=== PATIENT | male | born 2000 | race Caucasian/White ===

== ENCOUNTER 2020-06-23 03:15 | Emergency (ER) | payer OTHER, MEDICAID, SELFPAY ==
[2019-08-30 17:25] VITALS: BMI 31.8
[2020-06-23 03:16] VITALS: BP 152/85; PULSE 88; RESP 16; TEMP 37.1; O2SAT 96; BMI 29.1
--- NOTE | 2020-06-23 03:24 | ED.DCSUM_ITS ---
History of Present Illness Chief Complaint: Lower Extremity Injury Informant: Patient Narrative: Stated he was walking to his break and felt some pain in the right inferior aspect of the right knee patient stated this happened at work. [place] [employer] when he was walking. He stated last week he had a similar event in his right knee. Is unsure what happened. No previous injury. Took some ibuprofen. Worsened by movement. Relieved with rest. Current severity is mild. No blunt injury. Past Medical History - Allergies and Home Meds Allergies/Adverse Reactions: Allergies cat dander Allergy (Verified 06/23/20 03:20) Unknown acetaminophen [From Vicodin] Adverse Reaction (Verified 06/23/20 03:20) Other hydrocodone bitartrate [From Vicodin] Adverse Reaction (Verified 06/23/20 03:20) Other Primary Care Physician: Alex Wasserman MD [Primary Care Provider] - Prior records reviewed: Yes Past Medical History: None Surgical History: no surgical history Lives: With Family Smoking Status: Never smoker Alcohol: None Drugs: None Review of Systems General: Denies: Chills, Fever, Sweats Eyes: Denies: Visual changes - bilaterally, Diplopia ENT: Denies: Rhinorrhea, Sore throat Cardiovascular: Denies: Chest pain, Palpitations Respiratory: Denies: Dyspnea, Cough, Dyspnea on exertion Gastrointestinal: Denies: Abdominal pain, Nausea, Vomiting, Diarrhea, Melena, Hematochezia Genitourinary: Denies: Dysuria, Hematuria, Frequency Musculoskeletal: Reports: Extremity Pain. Denies: Back pain Skin: Denies: Rash, Wounds Neurological: Denies: Headache, Weakness, Numbness Physical Exam Vital Signs/Narrative: Vital Signs Temp Pulse Resp BP Pulse Ox 06/23/20 03:16 98.7 F 88 16 152/85 H 96 General: Well nourished, Well developed, No Acute Distress Head: Normocephalic, Atraumatic Eyes: Perrl, EOMI ENT: Moist mucous membranes, No rhinorrhea Neck: Supple, Nontender Cardiovascular: Regular rate, Regular rhythm, No murmurs Respiratory: No distress, CTA bilaterally, Chest nontender Abdomen: Soft, Nontender, Nondistended, Normal bowel sounds Back: Nontender, Normal Inspection Extremities: No edema, Tenderness - Tenderness in the right inferolateral patellar region. Mild decreased range of motion secondary to pain in this area. No fibular head tenderness. Extensor mechanism intact. No tenderness along the joint line. Ligaments taught Skin: Normal color, No rash Neurological: Alert, Oriented x3, Cranial nerves II-XII grossly intact, Normal Strength, Normal Sensation Psychological: Normal affect, Normal Mood Diagnostic/Tx/Re-eval - Medical Decision Making Given ice pack. Already took ibuprofen. X-ray of the right knee obtained. X- ray negative. Patient given Erlin wrap. We will follow-up with [facility]. At this time he may have a knee sprain versus ligamentous injury ED Disposition - Plan for ED Patient: Disposition: Home or Assisted Living Diagnosis: Right knee sprain Instructions: ED Sprain Knee [facility]: [facility] [GROUP OF PHYSICIANS] -
--- NOTE | 2020-06-23 03:45 | RAD_ITS ---
STUDY: X-RAY - RIGHT KNEE REASON FOR EXAM: Male, 19 years old. RIGHT KNEE PAIN, PT STATES KNEE GAVE OUT AND and quot;POPPED and quot; WHILE WALKING TODAY. TECHNIQUE: 4 view(s) of the knee. COMPARISON: None. FINDINGS: Normal visualized distal femur. Normal visualized proximal tibia and fibula. Normal proximal tibiofibular articulation. Normal medial femorotibial compartment. Normal lateral femorotibial compartment. Normal patellofemoral articulation. The soft tissue structures are unremarkable. RAD/Knee 4 or More Views IMPRESSION: Normal x-ray examination of the knee. Electronically Signed: Nikki Rodriguez, at 4:13 EDT Tel , Service support ,
[2020-06-23 04:30] VITALS: BP 150/83; PULSE 80; RESP 15; O2SAT 98
== END 2020-06-23 04:31 | disposition home or self-care (01) ==
PROVIDERS: Emergency Provider Emergency Medicine; PCP Family Medicine
DX: S83.91XA Sprain of unspecified site of right knee, initial encounter (principal); X58.XXXA Exposure to other specified factors, initial encounter
CPT/HCPCS: 73564; 99282

== ENCOUNTER → 2020-10-20 16:20 | Outpatient (CLI) | payer MEDICAID, SELFPAY ==
[2020-06-27 09:10] VITALS: BMI 33.0
--- NOTE | 2020-10-20 16:21 | RAD_ITS ---
STUDY: X-RAY - RIGHT ANKLE REASON FOR EXAM: Male, 20 years old. rolled ankle while playing basketball about an hour ago TECHNIQUE: 3 view(s) of the ankle. COMPARISON: None. FINDINGS: Normal visualized distal tibia and fibula. Normal medial and lateral malleoli. Normal tibiotalar articulation and ankle mortise. Normal visualized talus and calcaneus. The visualized subtalar, talonavicular, calcaneocuboid and tarsal articulations are normal. There is no demonstrated fracture. Mild to moderate soft tissue swelling is present over the lateral aspect of the ankle. RAD/Ankle min 3 Views IMPRESSION: Mild to moderate soft tissue swelling of the lateral aspect of the ankle Electronically Signed: Trenton Lundberg MD at 17:25 EST , Service support ,
== END ==
PROVIDERS: PCP Family Medicine; Referring Provider Physician Assistant Surgical; Visit Provider Physician Assistant Surgical
DX: S93.409A Sprain of unspecified ligament of unspecified ankle, initial encounter (principal)
CPT/HCPCS: 73610

== ENCOUNTER 2022-02-28 23:30 | Emergency (ER) | payer MEDICAID, SELFPAY ==
[2022-02-28 23:31] VITALS: BP 158/83; PULSE 110; RESP 18; TEMP 35.9; O2SAT 94; BMI 35.9
[2022-03-01 00:05] LABS: Absolute Lymphocyte Count 1.41 X10^3/uL (0.83-4.51); Absolute Neutrophil Count 13.9 X10^3/uL (2.0-7.7); Basophil# 0.06 X10^3/uL; Basophil% 0.4 % (0-1); Eosinophil# 0.14 X10^3/uL; Eosinophils% 0.8 % (0-5); Hematocrit 47.4 % (40-54); Hemoglobin 15.7 g/dL (13.0-16.5); Lymphocyte # 1.41 X10^3/ul (0.83-4.51); Lymphocyte % 8.3 % (19-41); Mean Corp Hgb Conc 33.1 g/dL (32-36); Mean Corpuscular Hgb 28.1 pg (27.0-32.0); Mean Corpuscular Volume 84.8 fL (80-94); Mean Platelet Vol. 11.3 fl (6.2-12.0); Monocyte# 1.37 X10^3/uL; Monocyte% 8.1 % (0-10); NRBC Flagged by Analyzer 0 % (0-5); Neutrophil # 13.91 X10^3/uL (2.7-7.7); Neutrophil % 81.9 % (47-70); Platelet Count 218 K/mm3 (150-450); RBC Distribution Width CV 13.2 % (11.6-14.6); RBC Distribution Width SD 41.1 fl (35.1-43.9); Red Blood Count 5.59 M/mm3 (4.6-6.2)
[2022-03-01] MEDS: Ondansetron 4 MG/2 ML Vial IV (00:07)
[2022-03-01] MEDS: Ketorolac 30 MG/ML Syringe IV (00:08)
[2022-03-01] MEDS: Dicyclomine 20 MG/2 ML Vial IM (00:10)
[2022-03-01] MEDS: 0.9% Normal Saline 1,000 ML 1000 ML IV (00:11)
[2022-03-01 00:18] LABS: Anion Gap 8 (5-15); BUN 19 mg/dL (7-18); BUN/Creat Ratio 20.9 RATIO (10-20); Calcium,Total 8.9 mg/dL (8.5-10.1); Chloride 108 mmol/L (98-107); Creatinine, Serum 0.91 mg/dL (0.70-1.30); EST Glomerular Filtration Rate 111 mL/min (>60); Est Glom Filt Rate - Afr Amer 134 mL/min (>60); Estimated Creatinine Clearance 140.94 ml/min; Glucose 117 mg/dL (74-106); Potassium 3.9 mmol/L (3.5-5.1); Sodium Level 140 mmol/L (136-145)
--- NOTE | 2022-03-01 00:33 | EDS_ITS ---
HPI History of Present Illness Chief Complaint: Nausea/Vomiting Informant: patient Onset/Context/Timing Onset: Today Current Severity: Moderate Maximum Severity: Moderate Narrative Narrative: Patient presents admitted nausea, vomiting, and diarrhea after eating a [employer] today. He states he felt fine prior to eating out. He has had abdominal cramping with vomiting and diarrhea since. No fever. PFSH PFSH Medical History no medical history no medical history Home Medications dicyclomine 20 mg tablet 20 mg PO TID PRN abdominal cramping #10 tabs 03/01/22 [Rx Last Taken Unknown] ondansetron 4 mg disintegrating tablet 4 mg PO Q8H PRN nausea and vomiting #10 tabs 03/01/22 [Rx Last Taken Unknown] Allergy/AdvReac Type Severity Reaction Status Date / Time cat dander Allergy Unknown Verified 02/28/22 23:33 acetaminophen [From Vicodin] AdvReac Other Verified 02/28/22 23:33 hydrocodone bitartrate AdvReac Other Verified 02/28/22 23:33 [From Vicodin] Family History Father Hypertension Other Heart disease Social History Smoking Status: Never smoker alcohol intake: never ROS ROS ED Constitutional Constitutional ED: Denies chills or fever(s) Eyes Eyes: Denies change in vision or discharge from eye(s) ENT ENT ED: Denies discharge from eye(s), rhinorrhea or sore throat Cardiovascular Cardiovascular: Denies chest pain or palpitations Respiratory/Chest Respiratory/Chest: Denies cough or dyspnea Gastrointestinal Gastrointestinal: Reports abdominal pain, diarrhea, nausea and vomiting Genitourinary Genitourinary ED: Denies difficulty urinating or dysuria Musculoskeletal Musculoskeletal: Denies back pain or extremity pain Integumentary Denies Abrasions or rash Neurologic Neurologic: Denies headache(s) or weakness Allergic/Immunologic Allergic/Immunologic ED: Denies lip swelling or urticaria EXAM Physical Exam Const Vital Signs: 02/28/22 23:31 Temperature 96.7 F L Temperature Source Temporal Pulse Rate 110 H Respiratory Rate 18 Blood Pressure 158/83 H Blood Pressure Mean 108 Pulse Ox 94 Oxygen Delivery Method Room Air Positive well nourished and well developed General Appearance ED: well developed HEENT Reports moist mucous membranes Eyes PERRL and EOMs intact bilaterally Chest Wall inspection of chest normal and palpation of chest normal Resp normal respiratory effort and clear to auscultation bilaterally Cardio regular rate and regular rhythm GI non-tender Auscultation: hypoactive bowel sounds Extremity normal to inspection Neuro oriented x3, CN's II-XII intact bilaterally and no sensory deficits noted Motor Exam: strength 5/5 throughout Psych mental status grossly normal Skin no rashes or lesions noted MDM MDM MDM Narrative Medical decision making narrative: Patient is given IV fluids, Toradol, Zofran, Bentyl. Lab work obtained. Lab Data Attestation: I reviewed the patient's lab results. Labs: Laboratory Results - last 24 hr 02/28/22 02/28/22 23:52 23:52 WBC 17.0 H RBC 5.59 Hgb 15.7 Hct 47.4 MCV 84.8 MCH 28.1 MCHC 33.1 RDW Std Deviation 41.1 RDW Coeff of Dia 13.2 Plt Count 218 MPV 11.3 Immature Gran % (Auto) 0.500 Neut % (Auto) 81.9 H Lymph % (Auto) 8.3 L Archuleta % (Auto) 8.1 Eos % (Auto) 0.8 Baso % (Auto) 0.4 Absolute Neuts (auto) 13.9 H Absolute Lymphs (auto) 1.41 Nucleated RBC % 0 Sodium 140 Potassium 3.9 Chloride 108 H Carbon Dioxide 24.0 Anion Gap 8 BUN 19 H Creatinine 0.91 Estim Creat Clear Calc 140.94 Est GFR (MDRD) Af Amer 134 Est GFR (MDRD) Non-Af 111 BUN/Creatinine Ratio 20.9 H Glucose 117 H Calcium 8.9 Treatment and Re-Evaluation Narrative: White count elevated at 17.0 with left shift. I believe this is likely demargination from vomiting. Chemistry studies remarkable only for slight bump in BUN. On repeat evaluation patient reports significant improvement in his symptoms. He is tolerating p.o. fluids. Abdominal examination remains benign. Patient will be given prescription for Zofran and Bentyl. He will be given a work note for tomorrow if not improved in the morning. Discharge Plan Triage Chief Complaint: Nausea/Vomiting ED Provider: Gaye Peña Dx/Rx/DC Orders Clinical Impression: Gastroenteritis Instructions: ED Food Poison Or Gastroenteritis Prescriptions: New ondansetron 4 mg tablet,disintegrating 4 mg PO Q8H PRN (Reason: nausea and vomiting) Qty: 10 0RF dicyclomine 20 mg tablet 20 mg PO TID PRN (Reason: abdominal cramping) Qty: 10 0RF Stand Alone Forms: ED Work / School Excuse Primary Care Provider: Alex Wasserman Referrals: Alex Wasserman MD [Primary Care Provider] - 3-5 Days if not improving Disposition Disposition: Home, Self Care
[2022-03-01 00:55] VITALS: BP 158/81; PULSE 87; RESP 15; O2SAT 98
== END 2022-03-01 01:00 | disposition home or self-care (01) ==
PROVIDERS: Emergency Provider Emergency Medicine; PCP Family Medicine; Visit Provider Emergency Medicine
DX: K52.9 Noninfective gastroenteritis and colitis, unspecified (principal)
CPT/HCPCS: 80048; 85025; 96372; 96374; 96375; 99283; J7030; A4216; J2405

== ENCOUNTER 2022-09-12 22:36 | Emergency (ER) | payer MEDICAID, SELFPAY ==
[2022-09-12 22:37] VITALS: BP 146/94; PULSE 80; RESP 15; TEMP 36.2; O2SAT 100; BMI 35.9
--- NOTE | 2022-09-12 23:20 | RAD_ITS ---
EXAM: XR CHEST, 2 VIEWS CLINICAL INDICATION: chest pain left TECHNIQUE: Frontal and lateral views of the chest. This report was created using [employer] report generation technology. COMPARISON: None. FINDINGS: LUNGS AND PLEURAL SPACES: Unremarkable. No consolidation or edema. No pneumothorax. No effusion. HEART: Unremarkable. Cardiac silhouette not enlarged. MEDIASTINUM: Central airways and mediastinal contour are unremarkable. BONES/JOINTS: Unremarkable. SOFT TISSUES: Unremarkable. RAD/Chest PA and Lateral IMPRESSION: No radiographic evidence of acute cardiopulmonary disease. Electronically Signed: Dimitri Lau MD at 23:58 EST ,
--- NOTE | 2022-09-13 | EDS_ITS ---
HPI History of Present Illness Chief Complaint: Chest Pain Informant: patient Onset/Context/Timing Onset: Days (3-4) Activity at onset: sudden and onset Timing: Intermittent and Lasts (few seconds) Quality: Positive for Sharp Location: Left Chest Current Severity: Gone Maximum Severity: Moderate Worsened By: Nothing; Not Worsened By Exertion, Movement of Arm, Movement of Torso, Breathing or Coughing Relieved By: Nothing Associated Symptoms: Negative for Nausea, Vomiting, Diaphoresis, Dyspnea, Cough, Fever, Lightheadedness or Palpitations Narrative Narrative: Patient presents for evaluation of intermittent sharp brief chest discomfort episodes that have been going on for the last 3 or 4 days. 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 He states the pain feels sort of like muscle pain that he has had in the past but denies an obvious reason to have it right now. He does not have any obvious triggers for the pain such as lying down, moving his arm or his torso, exertion, breathing, coughing. No leg pain or swelling or injury or recent illness. No recent travel out of the area, immobilization, hospitalization, or surgery. No cough or hemoptysis. PFSH PFSH Medical History no medical history no medical history Home Medications melatonin 10 mg tablet 10 mg PO 09/12/22 [History Last Taken Unknown] Allergy/AdvReac Type Severity Reaction Status Date / Time cat dander Allergy Unknown Verified 02/28/22 23:33 acetaminophen [From Vicodin] AdvReac Other Verified 02/28/22 23:33 hydrocodone bitartrate AdvReac Other Verified 02/28/22 23:33 [From Vicodin] Family History Father Hypertension Other Heart disease Social History (Updated 09/13/22 @ 00:[address] Maximino Almaraz MD) Smoking Status: Never smoker alcohol intake: never substance use type: does not use ROS ROS ED Constitutional Constitutional ED: Denies chills or fever(s) Eyes Eyes: Denies change in vision or diplopia ENT ENT ED: Denies rhinorrhea or sore throat Cardiovascular Cardiovascular: Reports as per HPI and chest pain; Denies palpitations Respiratory/Chest Respiratory/Chest: Denies cough or dyspnea Gastrointestinal Gastrointestinal: Denies abdominal pain, diarrhea, nausea or vomiting Genitourinary Genitourinary ED: Denies dysuria or hematuria Musculoskeletal Musculoskeletal: Denies back pain or neck pain Integumentary Denies abscess or rash Neurologic Neurologic: Denies headache(s), paresthesias or weakness Psychiatric Psychiatric: Denies anxiety or suicidal thoughts EXAM Physical Exam Const Vital Signs: 09/12/22 22:37 09/12/22 22:47 Temperature 97.1 F L Temperature Source Temporal Pulse Rate 80 Respiratory Rate 15 Respiratory Effort Normal Blood Pressure 146/94 H Blood Pressure Mean 111 Pulse Ox 100 Oxygen Delivery Method Room Air Positive well nourished and well developed General Appearance ED: well developed and NAD HEENT Reports moist mucous membranes normocephalic and atraumatic Eyes PERRL and EOMs intact bilaterally Neck full ROM and supple Chest Wall inspection of chest normal and palpation of chest normal Resp normal respiratory effort and clear to auscultation bilaterally Cardio regular rate, regular rhythm and no murmurs Rate: Negative for tachycardic GI non-tender and non-distended Auscultation: normoactive bowel sounds Palpation: soft Back/Spine no CVA tenderness General Back: other FROM Extremity normal to inspection General Extremety ED: Negative for edema, pulses abnormal or tenderness General Extremity: Negative for edema or pulses abnormal Neuro oriented x3, CN's II-XII intact bilaterally and no sensory deficits noted Sensorium / Orientation: awake and alert Motor Exam: strength 5/5 throughout Skin no rashes or lesions noted and no wounds Heart Score History: Slightly/Non-Suspicious ECG: Normal Age: </= 45 years Risk Factors: No Risk Factors Troponin: </= Normal Limit Score: 0 MDM MDM MDM Narrative Medical decision making narrative: This discomfort sounds noncardiac. Differential reasonably includes musculoskeletal etiologies, esophageal spasm versus acid related etiologies, less likely pneumothorax. 2 view chest x-ray I interpreted, it is unremarkable, there is a narrow mediastinum and no sign of pneumothorax or focal consolidation. Radiology in agreement. I did a troponin as well, just to rule out other unusual etiologies such as myocarditis, less likely to be ischemic heart discomfort. This was normal as well. Patient is reassured, supportive care advised outpatient follow-up if his pain persist. Lab Data Labs: Laboratory Results - last 24 hr 09/12/22 22:49 Troponin I High Sens 6 Radiography Diagnostic Testing: Clinical Impression(s) from Imaging Studies Chest X-Ray 09/12/22 23:20 IMPRESSION: No radiographic evidence of acute cardiopulmonary disease. Electronically Signed: Dimitri Lau MD at 23:58 EST Reading Location ID and State: [address] [place] [address] Tel , Service support , Rhythm Strip Rhythm Strip: Sinus Rhythm Rate: 80 Ectopy: None EKG Initial EKG: Attestation: I personally reviewed and interpreted this EKG as follows: Interpretation: Sinus Rhythm and No Acute Injury Pattern Comments: Normal EKG Discharge Plan Triage Chief Complaint: Chest Pain ED Provider: Maximino Almaraz Dx/Rx/DC Orders Clinical Impression: Intermittent left-sided chest pain Instructions: ED Chest Pain, Noncardiac Prescriptions: No Action melatonin 10 mg Tablet 10 mg PO Primary Care Provider: Alex Wasserman Referrals: Alex Wasserman MD [Primary Care Provider] - 1 Week if not improving Activity Restrictions/Additional Instructions: May try Mylanta or Maalox for the discomfort, if that does not help temporarily then may try anti-inflammatories like ibuprofen. Disposition Disposition: Home, Self Care
--- NOTE | 2022-09-13 00:06 | EKG12_ITS ---
Test Reason : CP Blood Pressure : / mmHG Vent. Rate : 079 BPM Atrial Rate : 079 BPM P-R Int : 166 ms QRS Dur : 086 ms QT Int : 348 ms P-R-T Axes : 031 050 000 degrees QTc Int : 399 ms Normal sinus rhythm Normal ECG Confirmed by DEMETRIO QUEZADA, ENRICO ([id number]), offline editor SHU MCCABE ([id number]) on 09/13/2022 2:01:03 PM Referred By: BB Confirmed By:ENRICO ATKINSON MD
[2022-09-13 00:10] LABS: Troponin-I HS 6 pg/mL (3.0-78.0)
[2022-09-13 00:32] VITALS: BP 144/75; PULSE 87; RESP 15; O2SAT 97
== END 2022-09-13 00:32 | disposition home or self-care (01) ==
PROVIDERS: Emergency Provider Emergency Medicine; PCP Family Medicine; Visit Provider Emergency Medicine
DX: R07.9 Chest pain, unspecified (principal); Z82.49 Family history of ischemic heart disease and other diseases of the circulatory system
CPT/HCPCS: 71046; 84484; 93005; 99282; A4216

== ENCOUNTER 2023-09-15 18:43 | Emergency (ER) | payer SELFPAY ==
[2023-09-15 18:44] VITALS: BP 179/94; PULSE 98; RESP 16; TEMP 36; O2SAT 99; BMI 36.2
--- NOTE | 2023-09-15 18:47 | RAD_ITS ---
STUDY: X-RAY - LEFT KNEE REASON FOR EXAM: Male, 23 years old. INJURY TECHNIQUE: 5 view(s) of the knee. COMPARISON: None. FINDINGS: Normal visualized distal femur. Normal visualized proximal tibia and fibula. Normal proximal tibiofibular articulation. There is no demonstrated fracture. Normal medial femorotibial compartment. Normal lateral femorotibial compartment. Normal patellofemoral articulation. The soft tissue structures are unremarkable. RAD/Knee 4 or More Views IMPRESSION: Normal x-ray examination of the knee. Electronically Signed: Maximino Shah MD at 19:05 EST ,
--- OUTSIDE RECORDS SUMMARY | 2023-09-15 19:56 | XMS RPT_ITS | CCD ---
Author Name Unknown Address [facility] [address] [place] [address] Organization [facility] Care Team Providers Care [facility] [place] Name Role Phone JOEL CASTELLANOS Unavailable Unavailable MAYELIN JONES Unavailable Unavailable MAYELIN JONES Unavailable Unavailable [place], [facility] Admitting Unava ilable [facility] Attending Unava ilxavier SALGADO, [facility] Primary Care MAYELIN Avery MD Consulting Unavailable Mayelin Jones MD Primary Care Provider [phone] MAYELIN JONES Primary Care Unavailable Allergies Allergy Classification Reported Allergen(s) Allergy Type Date of Onset Reaction(s) Facility (3 sources) Acetaminophen / HYDROcodone; Translations: [HYDROCODONE-ACET AMINOPHEN] Drug Allergy 3 Mental Status Change [facility] Work Phone: (3 sources) Seasonal allergy; Translations: [SEASONAL ALLERGIES] Allergy to substance 3 Other: See Comments [facility] Medications Current Medications Medication Drug Class(es) Dates Sig (Normalized) Sig (Original) predniSONE 10 mg oral tablet (2 sources) Start: 05-12-2023 End: 05-21-2023 predniSONE (DELTASONE) 10 mg tablet Indications: ETD (Eustachian tube dysfunction), bilateral Take 4 tabs daily for 3 days, then 2 tabs daily for 3 days, then 1 tab daily for 3 days with food. 21 tablet 0 05/12/2023 05/21/2023 Active Completed/Discontinued Medications Medication Drug Class(es) Dates Sig (Normalized) Sig (Original) clotrimazole 10 mg/ml topical cream (2 sources) Azole Antifungal Start: 10-21-2015 clotrimazole (LOTRIMIN, CLOTRIM) 1 % cream Apply 1 application to affected area twice daily. 60 g 1 10/21/2015 Active Problems Problem Classification Problem Date Documented Da te Episodic/Chronic Other upper respiratory infections (2 sources) Sore throat symptom; Translations: [Acute pharyngitis, unspecified] 05-12-2023 Episodic Otitis media and related conditions (1 source) Dysfunction of bilateral eustachian tubes; Translations: [Unspecified Eustachian tube disorder, bilateral] 05-12-2023 Episodic Results Test Name Value Interpretation Reference Range Facil ity Vital Signs Date Time Vital Sign Value Performing Clinician Faci lity 05-12-2023 13:36-0400 Body temperature 96.69 [degF] Jesus Maldonado [employer]TON PROGRAM TECHNICIAN.[employer] Work Phone: [facility] 05-12-2023 13:36-0400 Body weight 124.01 kg Jesus Maldonado [employer]OTTON PROGRAM TECHNICIAN.[employer] Work Phone: [facility] 05-12-2023 13:36-0400 Diastolic blood pressure 78 mm[Hg] Jesus Maldonado [employer]TON PROGRAM TECHNICIAN.[employer] Work Phone: [facility] 05-12-2023 13:36-0400 Heart rate 88 /min Jesus Maldonado [employer]TON PROGRAM TECHNICIAN.[employer] Work Phone: [facility] 05-12-2023 13:36-0400 Respiratory rate 20 /min Jesus Maldonado [employer]OTTON PROGRAM TECHNICIAN.[employer] Work Phone: [facility] 05-12-2023 13:36-0400 SaO2% (BldA) [Mass fraction] 97 % Jesus Maldonado [employer]OTTON PROGRAM TECHNICIAN.[employer] Work Phone: [facility] 05-12-2023 13:36-0400 Systolic blood pressure 138 mm[Hg] Jesus Maldonado COTTON PROGRAM TECHNICIAN.[employer] Work Phone: [facility] Encounters Encounter Date Encounter Type Care Provider Facility Start: 05-13-2023 Telephone encounter Gordy Salamanca MD Work Phone: [facility] Procedures Date Procedure Procedure Detail Performing Clinician Start: 05-12-2023 STREP A MOLECULAR (POC) [facility] Provider Plan of Treatment Date Care Activity Detail Author Start: 05-06-2023 Influenza vaccination INFLUENZA (#1) [facility] Start: 03-16-2023 Urine microalbumin profile DTAP,TDAP,TD (7 - Td or Tdap) [facility] Start: 09-05-2022 DEPRESSION ASSESSMENT DEPRESSION ASSESSMENT [facility] Start: 2018 HEPATITIS C SCREENING HEPATITIS C SCREENING [facility] Start: 2018 HIV SCREENING HIV SCREENING [facility] Start: 2016 MENINGOCOCCAL B: Consider based on risk (2 of 2 - Risk Bexsero 2-dose series) MENINGOCOCCAL B: Consider based on risk (2 of 2 - Risk Bexsero 2-dose series) [facility] Start: 2014 PEDS TO ADULT TRANSITION ANNUAL ASSESSMENT PEDS TO ADULT TRANSITION ANNUAL ASSESSMENT [facility] Start: 2012 PEDS TO ADULT TRANSITION INITIAL DISCUSSION PEDS TO ADULT TRANSITION INITIAL DISCUSSION [facility] Start: 2009 HPV VACCINE (1 - Male 2-dose series) HPV VACCINE (1 - Male 2-dose series) [facility] Start: 02-10-2001 COVID-19 VACCINE (#1) COVID-19 VACCINE (#1) [facility] ALERE STREP A TEST (AG) ALERE ST REP A TEST (AG) Lab Routine Sore throat Ordered: 05/12/2023 [facility] Work Phone: Immunizations Immunization Date Immunization Notes Care Provider Yazmin white 03-16-2013 tetanus toxoid, redu michelle diphtheria toxoid, and acellular pertussis vaccine, adsorbed Jesus Maldonado [employer]TON PROGRAM TECHNICIAN.[employer] Work Phone: [facility] Work Phone: 04-16-2011 varicella virus vaccine Jose Maldonado COTTON PROGRAM TECHNICIAN.[employer] Work Phone: [facility] 12-09-2005 diphtheria, tetanus toxoids and acellular pertussis vaccine Jesus Maldonado COTTON PROGRAM TECHNICIAN.[employer] Work Phone: [facility] Work Phone: 12-09-2005 measles, mumps and rubella virus vaccine Jesus Joel COTTON PROGRAM TECHNICIAN.[employer] Work Phone: [facility] Work Phone: 12-09-2005 poliovirus vaccine, inactivated Jesus Maldonado COTTON PROGRAM TECHNICIAN.[employer] Work Phone: [facility] Work Phone: 04-05-2002 diphtheria, tetanus toxoids and acellular pertussis vaccine Jesus Maldonado COTTON PROGRAM TECHNICIAN.[employer] Work Phone: [facility] Work Phone: 04-05-2002 haemophilus influenz ae type b vaccine, HbOC conjugate Jesus Maldonado COTTON PROGRAM TECHNICIAN.[employer] Work Phone: [facility] Work Phone: 04-05-2002 pneumococcal conjuga te vaccine, 7 valent Jesus Maldonado COTTON PROGRAM TECHNICIAN.[facility] Work Phone: [facility] Work Phone: 04-05-2002 varicella virus vaccine Jose Maldonado COTTON PROGRAM TECHNICIAN.[facility] Work Phone: [facility] Work Phone: 10-11-2001 measles, mumps and rubella virus vaccine Jesus Maldonado COTTON PROGRAM TECHNICIAN.[employer] Work Phone: [facility] Work Phone: 10-11-2001 poliovirus vaccine, inactivated Jesus Maldonado COTTON PROGRAM TECHNICIAN.[facility] Work Phone: [facility] Work Phone: 09-27-2001 poliovirus vaccine, inactivated Jesus Maldonado COTTON PROGRAM TECHNICIAN.[facility] Work Phone: [facility] Work Phone: 03-28-2001 hepatitis B vaccine, pediatric or pediatric/adolescent dosage Jesus Maldonado COTTON PROGRAM TECHNICIAN.[employer] Work Phone: [facility] Work Phone: 01-25-2001 diphtheria, tetanus toxoids and acellular pertussis vaccine Jesus Maldonado COTTON PROGRAM TECHNICIAN.[employer] Work Phone: [facility] Work Phone: 01-25-2001 haemophilus influenz ae type b vaccine, HbOC conjugate Jesus Maldonado COTTON PROGRAM TECHNICIAN.[employer] Work Phone: [facility] Work Phone: 01-25-2001 pneumococcal conjuga te vaccine, 7 valent Jesus Joel COTTON PROGRAM TECHNICIAN.[employer] Work Phone: [facility] Work Phone: 2000 diphtheria, tetanus toxoids and acellular pertussis vaccine Jesus Joel COTTON PROGRAM TECHNICIAN.[employer] Work Phone: [facility] Work Phone: 2000 haemophilus influenz ae type b vaccine, HbOC conjugate Jesus Joel COTTON PROGRAM TECHNICIAN.[employer] Work Phone: [facility] Work Phone: 2000 pneumococcal conjuga te vaccine, 7 valent Jesus Joel COTTON PROGRAM TECHNICIAN.[facility] Work Phone: [facility] Work Phone: 2000 poliovirus vaccine, inactivated Jesus Joel COTTON PROGRAM TECHNICIAN.[facility] Work Phone: [facility] Work Phone: 2000 diphtheria, tetanus toxoids and acellular pertussis vaccine Jesus Maldonado COTTON PROGRAM TECHNICIAN.[employer] Work Phone: [facility] Work Phone: 2000 haemophilus influenz ae type b vaccine, HbOC conjugate Jesus Joel COTTON PROGRAM TECHNICIAN.[employer] Work Phone: [facility] Work Phone: 2000 pneumococcal conjuga te vaccine, 7 valent Jesus Joel COTTON PROGRAM TECHNICIAN.[employer] Work Phone: [facility] Work Phone: 2000 hepatitis B vaccine, pediatric or pediatric/adolescent dosage Jesus Joel COTTON PROGRAM TECHNICIAN.[employer] Work Phone: [facility] Work Phone: 2000 hepatitis B vaccine, pediatric or pediatric/adolescent dosage Jesus Joel COTTON PROGRAM TECHNICIAN.[employer] Work Phone: [facility] Work Phone: Payers Date Payer Category Payer Medicaid [employer] [id number] 2022-Present [phone] [address] [place] [address] Medicaid [id number] 2022 Medicaid [id number] Unknown [id number] Social History Date Type Detail Facility Start: 05-12-2023 Tobacco smoking stat us NHIS Never smoked tobacco [facility] Start: 05-12-2023 Alcohol intake Not Asked [facility] Start: 05-12-2023 History of Social function [facility] Start: 05-12-2023 Tobacco use panel [facility] Start: 05-12-2023 Tobacco Comment no one in hous e hold smokes [facility] Start: 2000 Sex Assigned At Not on file [facility] Note 05-16-2023 Telephone Encounter - Hui Montalvo - 05/16/2023 11:40 AM EDTTelephone Encounter - Hui Montalvo - 05/13/2023 10:09 AM EDTTelephone Encounter - Hui Montalvo - 05/13/2023 9:45 AM EDT Note Date & Type Note Facility 05-16-2023 Miscellaneous Notes Formattin g of this note might be different from the original. Left detailed message on a secured voicemail. Hui Montalvo Left message for patient to return call. Hui Montalvo ----- Message from Gordy Faulkner MD sent at 05/13/2023 8:26 AM EDT ----- Negative COVID and Influenza. documented in this encounter [facility] Progress note 05-12-2023 Note Date & Type Note Facility 05-12-2023 Note HNO ID: [id number] Author: Jesus Maldonado APRN.QUARTZ MINER Service: ? Author Type: Nurse Practitioner Type: Progress Notes Filed: 05/12/2023 2:41 PM Note Text: Subjective HPI HPI Yariel Leong is a 22 year old male who presents today for CC of st, cough, congestion, ear pain. This started 2 days ago. Has tried otc medication for relief. Symptoms are worsened by nothing. Risk factors sick exposures at work. Recently quit smoking. .Patient presents with: Ear Pain: Cough,headache, congestions x 2 days PAST MEDICAL HISTORY Diagnosis Date NEGATIVE MEDICAL HISTORY PAST SURGICAL HISTORY Procedure Laterality Date INC AND REM FB, SQ; SMPL 2006 left ear ALLERGIES Seasonal Allergies and Vicodin [Hydrocodone-Acetaminophen] MEDICATIONS clotrimazole (LOTRIMIN, CLOTRIM) 1 % cream Apply 1 application to affected area twice daily. FAMILY HISTORY Problem Relation Age of Onset Hypertension Father Allergies Mother Hypertension Maternal Grandmother Diabetes Maternal Uncle Heart Maternal Uncle congenital heart defect Lipids Father Coronary Artery Disease Father [place] at 23 Diabetes Father Heart Father Social History Tobacco Use Smoking status: Never Tobacco comments: no one in house hold smokes Review of Systems Constitutional: Negative for fever. HENT: Positive for congestion, ear pain and sore throat. Negative for ear discharge and nosebleeds. Respiratory: Positive for cough. Negative for shortness of breath and wheezing. Cardiovascular: Negative for chest pain. Musculoskeletal: Negative for neck pain. Skin: Negative for itching and rash. Objective Blood pressure 138/78, pulse 88, temperature (!) 35.9 ?C (96.7 ?F), resp. rate 20, weight 124 kg (273 lb 6.4 oz), SpO2 97 %. Physical Exam Constitutional: General: He is not in acute distress. Appearance: He is not toxic-appearing or diaphoretic. HENT: Head: Normocephalic and atraumatic. Right Ear: Hearing, tympanic membrane, ear canal and external ear normal. Left Ear: Hearing, tympanic membrane, ear canal and external ear normal. Nose: Nose normal. Mouth/Throat: Pharynx: Uvula midline. Posterior oropharyngeal erythema present. No pharyngeal swelling, oropharyngeal exudate or uvula swelling. Eyes: General: Lids are normal. No scleral icterus. Right eye: No discharge. Left eye: No discharge. Conjunctiva/sclera: Conjunctivae normal. Pupils: Pupils are equal, round, and reactive to light. Neck: Trachea: Trachea normal. Cardiovascular: Rate and Rhythm: Normal rate and regular rhythm. Heart sounds: Normal heart sounds. Pulmonary: Effort: Pulmonary effort is normal. Breath sounds: Normal breath sounds. Musculoskeletal: Cervical back: Normal range of motion and neck supple. Lymphadenopathy: Cervical: No cervical adenopathy. Right cervical: No superficial cervical adenopathy. Left cervical: No superficial cervical adenopathy. Skin: Findings: No rash. Neurological: Mental Status: He is alert and oriented to person, place, and time. ASSESSMENT/PLAN: 1. URI, acute - ICD9: 465.9, ICD10: J06.9 (primary diagnosis) - Discussed viral etiology and rationale for treatment. - Symptomatic treatment with prn analgesia - Supportive care with fluids and rest - Follow up in 3-5 days if symptoms persist or sooner if worsening of symptoms - COVID AND INFLUENZA A/B NAAT, ROUTINE 2. Sore throat - ICD9: 462, ICD10: J02.9 Neg, viral - ALERE STREP A TEST (AG) 3. ETD (Eustachian tube dysfunction), bilateral - ICD9: 381.81, ICD10: H69.93 -use medication as prescribed -follow up if symptoms persist, worsen, change - PREDNISONE 10 MG TABLET - FLUTICASONE PROPIONATE 50 MCG/ACTUATION NASAL SPRAY,SUSPENSION Jesus Maldonado APRN.QUARTZ MINER [facility] History of Present illness Narrative 05-12-2023 Jesus Maldonado APRN.OMAIRA - 05/12/2023 1:47 PM EDT Note Date & Type Note Facility 05-12-2023 History of Presen t illness Narrative Subjective HPI HPI Yariel Leong is a 22 year old male who presents today for CC of st, cough, congestion, ear pain. This started 2 days ago. Has tried otc medication for relief. Symptoms are worsened by nothing. Risk factors sick exposures at work. Recently quit smoking. .Patient presents with: Ear Pain: Cough,headache, congestions x 2 days PAST MEDICAL HISTORY Diagnosis Date NEGATIVE MEDICAL HISTORY PAST SURGICAL HISTORY Procedure Laterality Date INC & REM FB, SQ; SMPL 2006 left ear ALLERGIES Seasonal Allergies and Vicodin [Hydrocodone-Acetaminophen] MEDICATIONS clotrimazole (LOTRIMIN, CLOTRIM) 1 % cream Apply 1 application to affected area twice daily. FAMILY HISTORY Problem Relation Age of Onset Hypertension Father Allergies Mother Hypertension Maternal Grandmother Diabetes Maternal Uncle Heart Maternal Uncle congenital heart defect Lipids Father Coronary Artery Disease Father [place] at 23 Diabetes Father Heart Father Social History Tobacco Use Smoking status: Never Tobacco comments: no one in house hold smokes Review of Systems Constitutional: Negative for fever. HENT: Positive for congestion, ear pain and sore throat. Negative for ear discharge and nosebleeds. Respiratory: Positive for cough. Negative for shortness of breath and wheezing. Cardiovascular: Negative for chest pain. Musculoskeletal: Negative for neck pain. Skin: Negative for itching and rash. Objective Blood pressure 138/78, pulse 88, temperature (!) 35.9 C (96.7 F), resp. rate 20, weight 124 kg (273 lb 6.4 oz), SpO2 97 %. Physical Exam Constitutional: General: He is not in acute distress. Appearance: He is not toxic-appearing or diaphoretic. HENT: Head: Normocephalic and atraumatic. Right Ear: Hearing, tympanic membrane, ear canal and external ear normal. Left Ear: Hearing, tympanic membrane, ear canal and external ear normal. Nose: Nose normal. Mouth/Throat: Pharynx: Uvula midline. Posterior oropharyngeal erythema present. No pharyngeal swelling, oropharyngeal exudate or uvula swelling. Eyes: General: Lids are normal. No scleral icterus. Right eye: No discharge. Left eye: No discharge. Conjunctiva/sclera: Conjunctivae normal. Pupils: Pupils are equal, round, and reactive to light. Neck: Trachea: Trachea normal. Cardiovascular: Rate and Rhythm: Normal rate and regular rhythm. Heart sounds: Normal heart sounds. Pulmonary: Effort: Pulmonary effort is normal. Breath sounds: Normal breath sounds. Musculoskeletal: Cervical back: Normal range of motion and neck supple. Lymphadenopathy: Cervical: No cervical adenopathy. Right cervical: No superficial cervical adenopathy. Left cervical: No superficial cervical adenopathy. Skin: Findings: No rash. Neurological: Mental Status: He is alert and oriented to person, place, and time. ASSESSMENT/PLAN: 1. URI, acute - ICD9: 465.9, ICD10: J06.9 (primary diagnosis) - Discussed viral etiology and rationale for treatment. - Symptomatic treatment with prn analgesia - Supportive care with fluids and rest - Follow up in 3-5 days if symptoms persist or sooner if worsening of symptoms - COVID & INFLUENZA A/B NAAT, ROUTINE 2. Sore throat - ICD9: 462, ICD10: J02.9 Neg, viral - ALERE STREP A TEST (AG) 3. ETD (Eustachian tube dysfunction), bilateral - ICD9: 381.81, ICD10: H69.93 -use medication as prescribed -follow up if symptoms persist, worsen, change - PREDNISONE 10 MG TABLET - FLUTICASONE PROPIONATE 50 MCG/ACTUATION NASAL SPRAY,SUSPENSION Jesus Maldonado APRN.OMAIRA documented in this encounter [facility] Evaluation note Note Date & Type Note Facility documented in this encounter [facility] Summary Purpose Family History No Family History Records FoundNo Family History Records FoundNo Family History Records Found Advance Directives No Advanced Directives Records FoundNo Advanced Directives Records FoundNo Advanced Directives Records Found Additional Source Comments (unrecognized sect ion and content) No Status Records FoundNo Status Records FoundNo Status Records Found INFORMATION SOURCE (unrecogn ized section and content) DATE CREATED AUTHOR AUTHOR'S ORGANIZ ATION 07/04/2020 [facility] DATE CREATED AUTHOR AUTHOR'S ORGANIZ ATION 05/17/2023 [facility] Source Comments (unrecognize d section and content) In the event this informatio n is protected by the Federal Confidentiality of Alcohol and Drug Abuse Patient Records regulations: The Federal rules restrict any use of the information to criminally investigate or prosecute any alcohol or drug abuse patient.[facility] the event this information is protected by the Federal Confidentiality of Alcohol and Drug Abuse Patient Records regulations: The Federal rules restrict any use of the information to criminally investigate or prosecute any alcohol or drug abuse patient.[facility] Reason for Visit (unrecogniz ed section and content) Reason Comments Results Care Teams (unrecognized sec tion and content) Fisher [employer]ster Relationship Specialty Start Date End Date Mayelin Jones MD [address] [place] [address] PCP - General Family Medicine 07/26/14 FOR RECORDS PERTAINING TO PATIENTS WHO ARE OR HAVE BEEN ENROLLED IN A CHEMICAL DEPENDENCY/SUBSTANCEABUSE PROGRAM, SOME INFORMATION MAY BE OMITTED. This clinical summary was aggregated from multiple sources. Caution should be exercised in using it in the provision of clinical care. This summary normalizes information from multiple sources, and as a consequence, information in this document may materially change the coding, format and clinical context of patient data. In addition, data may be omitted in some cases. CLINICAL DECISIONS SHOULD BE BASED ON THE PRIMARY CLINICAL RECORDS. [employer] [facility]. provides no warranty or guarantee of the accuracy or completeness of information in this document.
--- NOTE | 2023-09-15 20:05 | ED.VIS.LOWEX ---
HPI History of Present Illness HPI Narrative: Left knee injury playing basketball tonight. Chief Complaint: Lower Extremity Injury Informant: patient Occured/Mechanism Mechanism/Context: Yes injury Onset/Context/Timing Onset: Today Context: Sudden Onset Timing: Continuous Quality of Pain: Sharp Current Severity: Moderate Maximum Severity: Moderate Associated Symptoms Associated Symptoms: Negative for Parasthesia, Weakness or Loss of Funtion Narrative Narrative: Healthy 23-year-old male. Was playing basketball jumped when he landed he felt a pop in his left knee and pain. No prior history of surgery to the knee. Pain with ambulation. Mild swelling. Denies any hip ankle or foot pain. Prior similar symptoms: No Recent Illness/Hospitalization: No PFSH PFSH Medical History no medical history no medical history Home Medications melatonin 10 mg tablet 10 mg PO 09/12/22 [History Last Taken Unknown] Allergy/AdvReac Type Severity Reaction Status Date / Time cat dander Allergy Unknown Verified 09/15/23 18:46 acetaminophen [From Vicodin] AdvReac Other Verified 09/15/23 18:46 hydrocodone bitartrate AdvReac Other Verified 09/15/23 18:46 [From Vicodin] Family History Father Hypertension Other Heart disease no surgical history Social History Smoking Status: Never smoker alcohol intake: never substance use type: does not use ROS ROS ED ROS Narrative Recent cold. Review of Systems ROS Unobtainable: Denies due to encephalopathy Constitutional Constitutional ED: Denies chills or fever(s) Eyes Eyes: Denies blurry vision ENT ENT ED: Denies ear pain Cardiovascular Cardiovascular: Denies chest pain Respiratory/Chest Respiratory/Chest: Reports cough; Denies dyspnea Gastrointestinal Gastrointestinal: Denies abdominal pain Genitourinary Genitourinary ED: Denies dysuria or hematuria Musculoskeletal Musculoskeletal: Denies arthralgias Integumentary Denies abscess Neurologic Neurologic: Denies headache(s) Psychiatric Psychiatric: Denies anxiety or depression Endocrine Endocrinology: Denies polydipsia or polyphagia Hematologic/Lymphatic Hematologic/Lymphatic: Denies easy bleeding Allergic/Immunologic Allergic/Immunologic ED: Denies mouth swelling or tongue swelling EXAM Physical Exam Narrative Exam Narrative: Well-appearing 23-year-old male vital signs stable afebrile. He is in the hallway due to volume and acuity. H EENT exam unremarkable. Neck nontender. Lungs clear. Heart regular rhythm. Chest wall and ribs nontender. Abdomen soft nontender. Back nontender. Moving all 4 extremities. Left knee minimally swollen. He is able to do flexion extension he has more pain with maximal extension. ACL and PCL appear to be intact as do the MCL and LCL. No large effusion. Quadriceps patellar tendon and infrapatellar tendon are intact. No gross bony deformity. Left hip, ankle and foot are nontender with normal range of motion. Normal dorsi plantarflexion. Normal sensation. Otherwise exam unremarkable. Const Vital Signs: 09/15/23 18:44 Temperature 96.8 F L Temperature Source Temporal Pulse Rate 98 Respiratory Rate 16 Blood Pressure 179/94 H Blood Pressure Mean 122 Pulse Ox 99 Oxygen Delivery Method Room Air Positive well nourished and well developed; Negative for cachectic, contractures or unkempt General Appearance ED: well developed and NAD; Negative for unkempt, cachectic or contractures Nutritional Appearance: Negative for cachectic HEENT Reports moist mucous membranes normocephalic and atraumatic; Negative for trauma or tenderness Eyes PERRL General Eye ED: Negative for other Neck full ROM and supple Thyroid: Negative for tender Lymph Lymphatic: Negative for other Chest Wall inspection of chest normal and palpation of chest normal Chest: Negative for other Resp normal respiratory effort, no retractions and clear to auscultation bilaterally Effort and Inspection: Negative for pain with movement Auscultation: Negative for rales, rhonchi or wheezes Cardio regular rate, regular rhythm, S1 normal heart sound, S2 normal heart sound and no murmurs Rate: Negative for bradycardia or tachycardic Rhythm: Negative for abnormal rhythm Bruits: Negative for other GI non-tender, non-distended and no masses Inspection: Negative for abdominal distention Auscultation: normoactive bowel sounds Palpation: soft; Negative for tender or guarding Back/Spine no CVA tenderness General Back: Negative for CVA tenderness Cervical Spine: Negative for cervical spine tenderness Thoracic Spine / Upper Back: Negative for thoracic spinal tenderness Lumbar Spine / Lower Back: Negative for lumbar spinal tenderness Extremity normal to inspection and full ROM Extremity Narrative: Except tenderness left knee. Minimal swelling. No large effusion. He is able to flex and extend. He has pain with maximal extension. Quadriceps and infrapatellar tendon appear to be intact. ACL appears CL appear to be intact. MCL and LCL appear to be intact with good endpoints. No bony deformity. Left foot and ankle nontender neurovascular intact. General Extremety ED: Yes weight-bearing difficulty General Extremity: weight-bearing difficulty Neuro oriented x3, CN's II-XII intact bilaterally and moves all extremities Sensorium / Orientation: alert, oriented to person, oriented to place and oriented to time; Negative for orientation impaired, confused or lethargic Psych mental status grossly normal Appearance: Negative for unkempt Speech: No other Mood & Affect: Negative for anxious Skin no wounds Lesions: no lesions Rashes: no rashes Trauma: Negative for abrasion or laceration MDM MDM MDM Narrative Medical decision making narrative: 23-year-old male left knee injury playing basketball. X-rays were obtained 5 views interpreted both by myself and the radiologist shows no acute abnormality. There is no obvious tendon or ligament tear. No significant effusion. This will be treated as a left knee sprain. He knows to follow-up with orthopedics if not improving in a week. Ice and elevate. Slowly increase weightbearing as tolerated. Motrin and Tylenol for pain and swelling. History & Record Review Discussion w/independent historian: Patient Radiography Diagnostic Testing: Clinical Impression(s) from Imaging Studies Knee X-Ray 09/15/23 18:47 IMPRESSION: Normal x-ray examination of the knee. Electronically Signed: Maximino Shah MD at 19:05 EST Reading Location ID and State: [address] [place] [address] , Service support , Left knee x-ray interpreted by myself and the radiologist shows no significant abnormality. No acute bony abnormalities. No fractures or dislocation. No large effusion. 5 views. Discharge Plan Triage Chief Complaint: Lower Extremity Injury ED Provider: Star Mcfadden Dx/Rx/DC Orders Clinical Impression: Left knee sprain Instructions: ED Knee Sprain Prescriptions: No Action melatonin 10 mg Tablet 10 mg PO Primary Care Provider: Alex Wasserman Referrals: Alex Wasserman MD [Primary Care Provider] - Derrek Cheema MD [Med Staff - Active Staff] - 1 Week if not improving Activity Restrictions/Additional Instructions: Ice and elevate your left knee to decrease pain and swelling. Motrin for pain and swelling. May alternate with Tylenol for pain. Nonweightbearing and increase weightbearing as tolerated. Use your crutches. If this is not improving follow-up with orthopedics next week. Plain films look good. Those do not evaluate tendon, ligament and cartilage. This appears to be an knee sprain. If is not improving you may need further evaluation to rule any type of cartilage injury or ligament or tendon tear. Disposition Disposition: Home, Self Care
== END 2023-09-15 20:24 | disposition home or self-care (01) ==
PROVIDERS: Emergency Provider Emergency Medicine; PCP Family Medicine; Visit Provider Emergency Medicine
DX: S83.92XA Sprain of unspecified site of left knee, initial encounter (principal); Y93.67 Activity, basketball
CPT/HCPCS: 73564; 99282

== ENCOUNTER 2023-10-12 05:46 | Day surgery (SDC) | payer OTHER, SELFPAY ==
[2023-10-12] VITALS (8 sets, daily range): BP systolic 135–156; BP diastolic 82–97; PULSE 81–99; RESP 16–18; TEMP 36.6–37.2; O2SAT 94–98; BMI 37.3
--- OUTSIDE RECORDS SUMMARY | 2023-10-12 05:49 | XMS RPT_ITS | CCD ---
Author Name Unknown Address [id number] [place] [address] Organization [facility] Care Team Providers Care Collar Tacker Name Role Phone JOEL CASTELLANOS Unavailable Unavailable MAYELIN JONES Unavailable Unavailable MAYELIN JONES Unavailable Unavailable ELHAMWY, [facility] Admitting Unava ilxavier SALGADO, [facility]ending [facility] SALGADO, [facility] Primary Care MAYELIN Avery MD Consulting Unavailable Mayelin Jones MD Primary Care Provider [phone] MAYELIN JONES Primary Care Unavailable Allergies Allergy Classification Reported Allergen(s) Allergy Type Date of Onset Reaction(s) Facility (3 sources) Acetaminophen / HYDROcodone; Translations: [HYDROCODONE-ACET AMINOPHEN] Drug Allergy 3 Mental Status Change [facility] Work Phone: (3 sources) Seasonal allergy; Translations: [SEASONAL ALLERGIES] Allergy to substance 3 Other: See Comments [facility] Medications Current Medications Medication Drug Class(es) Dates [...] 13:36-0400 Body temperature 96.69 [degF] Jesus Maldonado APRN.TENTERING MACHINE FEEDER Work Phone: [facility] 05-12-2023 13:36-0400 Body weight 124.01 kg Jesus Maldonado APRN.CNP Work Phone: [facility] 05-12-2023 13:36-0400 Diastolic blood pressure 78 mm[Hg] Jesus Maldonado APRN.TENTERING MACHINE FEEDER Work Phone: [facility] 05-12-2023 13:36-0400 Heart rate 88 /min Jesus Maldonado APRN.TENTERING MACHINE FEEDER Work Phone: [facility] 05-12-2023 13:36-0400 Respiratory rate 20 /min Jesus Maldonado APRN.TENTERING MACHINE FEEDER Work Phone: [facility] 05-12-2023 13:36-0400 SaO2% (BldA) [Mass fraction] 97 % Jesus Maldonado APRN.TENTERING MACHINE FEEDER Work Phone: [facility] 05-12-2023 13:36-0400 Systolic blood pressure 138 mm[Hg] Jesus Maldonado APRN.TENTERING MACHINE FEEDER Work Phone: [facility] Encounters Encounter Date Encounter Type Care Provider Facility Start: 05-13-2023 Telephone encounter Gordy Salamanca MD Work Phone: [facility] Procedures Date Procedure Procedure Detail Performing Clinician Start: 05-12-2023 STREP A MOLECULAR (POC) [facility] Provider Plan of Treatment Date Care Activity Detail Author Start: 05-06-2023 Influenza vaccination INFLUENZA (#1) [facility] Start: 03-16-2023 Urine microalbumin profile DTAP,TDAP,TD (7 - Td or Tdap) [facility] Start: 09-05-2022 DEPRESSION ASSESSMENT DEPRESSION ASSESSMENT [facility] Start: 2018 HEPATITIS C SCREENING HEPATITIS C SCREENING [facility] Start: 2018 HIV SCREENING HIV SCREENING [facility] Start: 2016 MENINGOCOCCAL B: Consider based on risk (2 of 2 - Risk Bexsero 2-dose series) MENINGOCOCCAL B: Consider based on risk (2 of 2 - Risk Bexsero 2-dose series) [facility] Start: 2014 PEDS TO ADULT TRANSITION ANNUAL ASSESSMENT PEDS TO ADULT TRANSITION ANNUAL ASSESSMENT [facility] Start: 2012 PEDS TO ADULT TRANSITION INITIAL DISCUSSION PEDS TO ADULT TRANSITION INITIAL DISCUSSION [facility] Start: 2009 HPV VACCINE (1 - Male 2-dose series) HPV VACCINE (1 - Male 2-dose series) [facility] Start: 02-10-2001 COVID-19 VACCINE (#1) COVID-19 VACCINE (#1) [facility] ALERE STREP A TEST (AG) ALERE ST REP A TEST (AG) Lab Routine Sore throat Ordered: 05/12/2023 [facility] Work Phone: Immunizations Immunization Date Immunization Notes Care Provider Yazmin white 03-16-2013 tetanus toxoid, redu michelle diphtheria toxoid, and acellular pertussis vaccine, adsorbed Jesus Maldonado [employer].TENTERING MACHINE FEEDER Work Phone: [facility] Work Phone: 04-16-2011 varicella virus vaccine Jose Maldonado [employer].TENTERING MACHINE FEEDER Work Phone: [facility] 12-09-2005 diphtheria, tetanus toxoids and acellular pertussis vaccine Jesus Maldonado [employer]ENTERING MACHINE FEEDER Work Phone: [facility] Work Phone: 12-09-2005 measles, mumps and rubella virus vaccine Jesus Maldonado [employer]ENTERING MACHINE FEEDER Work Phone: [facility] Work Phone: 12-09-2005 poliovirus vaccine, inactivated Jesus Maldonado [employer].TENTERING MACHINE FEEDER Work Phone: [facility] Work Phone: 04-05-2002 diphtheria, tetanus toxoids and acellular pertussis vaccine Jesus Maldonado [employer]ING MACHINE FEEDER Work Phone: [facility] Work Phone: 04-05-2002 haemophilus influenz ae type b vaccine, HbOC conjugate Jesus Maldonado [employer]ENTERING MACHINE FEEDER Work Phone: [facility] Work Phone: 04-05-2002 pneumococcal conjuga te vaccine, 7 valent Jesus Maldonado [employer].[facility] Work Phone: [facility] Work Phone: 04-05-2002 varicella virus vaccine Jose Maldonado [employer].[facility] Work Phone: [facility] Work Phone: 10-11-2001 measles, mumps and rubella virus vaccine Jesus Maldonado [employer]ENTERING MACHINE FEEDER Work Phone: [facility] Work Phone: 10-11-2001 poliovirus vaccine, inactivated Jesus Maldonado [employer].[facility] Work Phone: [facility] Work Phone: 09-27-2001 poliovirus vaccine, inactivated Jesus Maldonado [employer].[facility] Work Phone: [facility] Work Phone: 03-28-2001 hepatitis B vaccine, pediatric or pediatric/adolescent dosage Jesus Maldonado [employer]ENTERING MACHINE FEEDER Work Phone: [facility] Work Phone: 01-25-2001 diphtheria, tetanus toxoids and acellular pertussis vaccine Jesus Maldonado [employer]ENTERING MACHINE FEEDER Work Phone: [facility] Work Phone: 01-25-2001 haemophilus influenz ae type b vaccine, HbOC conjugate Jesus Maldonado [employer]ENTERING MACHINE FEEDER Work Phone: [facility] Work Phone: 01-25-2001 pneumococcal conjuga te vaccine, 7 valent Jesus Joel [employer].[facility] Work Phone: [facility] Work Phone: 2000 diphtheria, tetanus toxoids and acellular pertussis vaccine Jesus Joel [employer]ENTER[employer]ACHINE [employer]ED[employer] Work Phone: [facility] Work Phone: 2000 haemophilus influenz ae type b vaccine, HbOC conjugate Jesus Joel [employer]ACHINE FEED[employer] Work Phone: [facility] Work Phone: 2000 pneumococcal conjuga te vaccine, 7 valent Jesus Joel [employer].[facility] Work Phone: [facility] Work Phone: 2000 poliovirus vaccine, inactivated Jesus Joel [employer].[facility] Work Phone: [facility] Work Phone: 2000 diphtheria, tetanus toxoids and acellular pertussis vaccine Jesus Joel [employer].[facility] Work Phone: [facility] Work Phone: 2000 haemophilus influenz ae type b vaccine, HbOC conjugate Jesus Joel [employer].[facility] Work Phone: [facility] Work Phone: 2000 pneumococcal conjuga te vaccine, 7 valent Jesus Joel [employer]ENTERING MACHINE FEED[employer] Work Phone: [facility] Work Phone: 2000 hepatitis B vaccine, pediatric or pediatric/adolescent dosage Jesus Joel [employer].[facility] Work Phone: [facility] Work Phone: 2000 hepatitis B vaccine, pediatric or pediatric/adolescent dosage Jesus Joel [employer].[facility] Work Phone: [facility] Work Phone: Payers Date Payer Category Payer Medicaid [employer] [facility] MEDICAID [id number] 2022-Present [phone] [address] [place] [address] Medicaid [id number] 2022 Medicaid [id number] Unknown [id number] Social History Date Type Detail Facility [facility]: [facility] Start: 05-12-2023 Alcohol intake Not Asked [facility] Start: 05-12-2023 History of Social function [facility] Start: 05-12-2023 Tobacco use panel Seantreva phillips [facility] Start: 05-12-2023 Tobacco Comment no one in hous e hold smokes [facility] Start: 2000 Sex Assigned At Not on file [facility] Progress note 09-16-2023 Note Date & Type Note Facility 09-16-2023 Note HNO ID: [id number] Author: MG DILLON LPN Service: ? Author Type: LICENSED NURSE Type: Progress Notes Filed: 09/16/2023 07:13 Note Text: Scan on 09/15/2023 8:16 PM by ProviderDavid PA-C: Consultation - Emergency Medicine Scan on 09/15/2023 7:09 PM by ProviderDavid PA-C: X-ray [facility] Note 05-16-2023 Telephone Encounter - Hui Montalvo [...] COVID and Influenza. documented in this encounter [facility] Progress note 05-12-2023 Note Date & Type Note Facility 05-12-2023 Note HNO ID: [id number] Author: Jesus Maldonado APRN.TENTERING MACHINE FEEDER Service: ? Author Type: Nurse Practitioner Type: Progress Notes Filed: 05/12/2023 2:41 PM Note Text: Subjective HPI HPI Jennifer Madera is a 22 year old male who [...] defect Lipids Father Coronary Artery Disease Father OR at 23 Diabetes Father Heart Father Social [...] PROPIONATE 50 MCG/ACTUATION NASAL SPRAY,SUSPENSION Jesus Maldonado APRN.TENTERING MACHINE FEEDER [facility] History of Present illness Narrative 05-12-2023 Jesus Maldonado APRN.OMAIRA - 05/12/2023 1:47 PM EDT Note Date & Type Note Facility 05-12-2023 History of Presen t illness Narrative Subjective HPI HPI Jennifer Madera is a 22 year old male who [...] defect Lipids Father Coronary Artery Disease Father OR at 23 Diabetes Father Heart Father Social [...] PROPIONATE 50 MCG/ACTUATION NASAL SPRAY,SUSPENSION Jesus Maldonado APRN.TENTERING MACHINE FEEDER documented in this encounter [facility] Evaluation note Note Date & Type Note Facility documented in this encounter [facility] Summary Purpose Family History No Family History [...] DATE CREATED AUTHOR AUTHOR'S ORGANIZ ATION 07/04/2020 [facility] DATE CREATED AUTHOR AUTHOR'S ORGANIZ ATION 09/17/2023 [facility] Comments (unrecognize d section and content) In the event this informatio n is protected by the Federal Confidentiality of Alcohol and Drug Abuse Patient Records regulations: The Federal rules restrict any use of the information to criminally investigate or prosecute any alcohol or drug abuse patient.[facility] the event this information is protected by the Federal Confidentiality of Alcohol and Drug Abuse Patient Records regulations: The Federal rules restrict any use of the information to criminally investigate or prosecute any alcohol or drug abuse patient.[facility] Reason for Visit (unrecogniz ed section and content) Reason Comments Results Care Teams (unrecognized sec tion and content) Collar Tacker Relationship Specialty Start Date End Date aMyelin Jones MD [address] [place] [address] PCP - General Family Medicine 07/26/14 FOR [...] BE BASED ON THE PRIMARY CLINICAL RECORDS. [facility]. provides no warranty or guarantee of the accuracy or completeness of information in this document.
[2023-10-12] MEDS: Lactated Ringers 1,000 ML 15 ML IV (06:19)
--- NOTE | 2023-10-12 07:06 | PCM.HP.STD ---
HPI - General HPI Narrative JENNIFER MADERA, is a 23 M who presents for left knee arthroscopy, medial meniscus repair possible partial medial meniscectomy. no changes to h and p. left knee marked. rab, post op instructions and narcotic counselling. ok to proceed. no further questions. MR#: [id number] Acct: [id number] Name: JENNIFER MADERA Rep #: [id number] : 2000 Provider: Dr. Derrek Cheema MD Age/Sex: 23/M Location: [facility] [place] Status: Signed Intake Vital Signs 09/20/2407:11 Height 5 ft 11 in Weight: 275 lb BMI 38.3 Intake Visit Reasons: LEFT KNEE Is patient in pain?: Yes Allergies cat dander Allergy (Verified 10/10/23 10:19) Unknownacetaminophen [From Vicodin] Adverse Reaction (Verified 10/10/23 10:19) Otherhydrocodone bitartrate [From Vicodin] Adverse Reaction (Verified 10/10/23 10:19) Other Medications NK 09/20/23 [History Confirmed 10/10/23] [facility] Medical History (Updated 10/10/23 @ 12:56 by Derrek Cheema MD) Bucket handle tear of meniscus of left knee 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 Derrek Cheema MD 10/10/23 1017. Part of today?s visit was documented by [ ], acting as scribe. JENNIFER MADERA is a 23 year old M here today for FU knee MRI. had it done at [facility].still having pain medial side and mechanical symptoms. Ortho Exam General General: Yes no acute distress Neurologic: Yes alert and Yes oriented x3 Psychologic: Yes reasonable and appropriate Right Knee Patella Translation: 2 Left Knee Skin/Wound: Yes CDI, No ecchymosis, No erythema and Yes swelling 1+: Effusion Knee ROM: Yes ROM-Flexion 0-140 Examination: Yes med jt line tenderness, No Lat jt line tenderness, No TTP inf pole patella, No Crepitus, Yes Pain with flexion, Yes Juju's Test, No Dial at 90, No Dial at 60, No TTP Patellar tendon, No TTP Tibial tubercle and No TTP Pes Anserine Quad Atrophy: No Stability: NML: Anterior Drawer, NML: Neri, NML: Posterior Drawer, NML: Valgus 0, NML: Valgus 30, NML: Varus 0 and NML: Varus 30 and 1+: Anterior Drawer and 1+: Neri Apprehension with Lateral Translation: No Patella Translation: 2 Patellar Tilt Normal: Yes Patella Grind: No KNEE: nvi, antalgic gait Supplemental Info Knee MRI from October 05, 2023 conclusion 1. Bucket-handle tear of the medial meniscus. Displaced meniscal fragment into the intercondylar notch. 2. Reactive edema or bone marrow contusion of the medial tibial plateau 3. Grade 1 MCL and LCL sprain. 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 This is generally recommended for surgery to attempt at repair of the meniscus possible partial medial meniscectomy although preferable to repair this bucket-handle tear in a young person. This is to repair the meniscus prevent any further degeneration of the cartilage or tearing or problems inside the knee. I explained the pros and cons risk and benefits of both nonoperative versus operative means of treating this problem. The patient understands wishes to go ahead with left knee arthroscopy, medial meniscus repair possible partial medial meniscectomy. I explained the postoperative recovery 6 weeks in full extension with weightbearing as tolerated and passive range of motion 0 to 90 degrees at that point and then progressing to recovery fully by 3 to 4 months after surgery. The patient understands that we will go ahead with try to book this urgently potentially this week if possible. Pros and cons risks and benefits were discussed with the patient including but not limited to infection, pain, stiffness, bleeding, damage to surrounding structures, neurovascular injury, recurrence or retear, failure or wear of hardware or fixation, instability, fracture, deep vein thrombosis and pulmonary embolism, anesthetic risks, , patient dissatisfaction, need for further surgery and other risks. Patient understood and wished to proceed with surgery, and signed the informed consent documentation. 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 MCL sprain of left knee Scoliosis Home Medications melatonin 10 mg capsule 10 mg PO QHS 10/10/23 [History Last Taken 10/11/23] Allergy/AdvReac Type Severity Reaction Status Date / Time cat dander Allergy Unknown Verified 10/12/23 05:52 hydrocodone bitartrate AdvReac Other Verified 10/12/23 05:52 [From Vicodin] Family History Father Hypertension Other Heart disease Social History Smoking Status: Former smoker alcohol intake: never substance use type: does not use Vital Signs Vital Signs Vital Signs: 10/12/23 06:19 10/12/23 06:19 Temperature 98 F Temperature Source Temporal Pulse Rate 83 Respiratory Rate 17 Respiratory Pattern Normal Blood Pressure 140/82 H Blood Pressure Mean 101 Blood Pressure Source Monitor Blood Pressure Position Semi-Fowlers Blood Pressure Location Left Arm Pulse Ox 98 Oxygen Delivery Method Room Air Weight Weight: 275 lb 9.245 oz Body Mass Index (BMI) 37.3
[2023-10-12] MEDS: Cefazolin 3 GM in 0.9% Normal Saline (100mL Bag) 100 ML IV (07:25)
[2023-10-12] MEDS: Epinephrine (1 mg/ml) 1 MG/ML VIAL (08:04)
[2023-10-12] MEDS: Bupivacaine 0.25% 30 ML Vial (08:15)
--- NOTE | 2023-10-12 08:35 | PCM.OPRPT ---
Problems Associated Problem List Diagnoses (1) Bucket handle tear of meniscus of left knee: Report of Operation Date of Procedure: 10/12/23 Pre-Operative Diagnosis: L knee medial meniscus tear Post-Operative Diagnosis: same Surgery/Procedure Performed:: Left knee arthroscopy, medial meniscus repair of bucket handle tear Surgeon: Derrek Cheema Type of Anesthesia: General and Local Anesthesiologist: Boone Storey Estimated Blood Loss (mL): 20 Description of Procedure: Patient brought to the operating room theater. Placed supine on the table. General anesthesia induced. 2 g IV Ancef administered prior to the start of the procedure. Tourniquet applied to the left thigh appropriately padded. SCD on the nonoperative leg. Stress positioner used to the patient's left side. All bony prominences padded. Lower extremity prepped and draped in the usual sterile fashion with chlorhexidine-based prep solution allowing over 3 minutes drying time prior to draping. Preoperative timeout performed to confirm the site patient the surgery. Began by elevating the limb inflated the tourniquet to 250 mmHg. Made standard anterolateral and anteromedial arthroscopy portals. Did a full diagnostic arthroscopy. Remove the ligamentum mucosum. Slight grade 1 fraying of the trochlear cartilage undersurface the patella was normal. Normal medial and lateral gutters. Normal cartilage in the medial and lateral compartments. ACL and PCL appeared normal. Normal lateral meniscus Stable solid to probing. Medial meniscus had an obvious bucket-handle component that was flipped into the notch. The tear was vertically oriented from about the anterior one third [address] way to the posterior root but the root was stable. The tear was in about the white-red zone. I reduced the tear using the probe. I used 'pie crusting' technique to open up the medial compartment and gain some laxity of the MCL proximally at the medial epicondyle. I used 7 vertical mattress Arthrex fiber stitch all inside suture repairs to gain good repair stable and solid to probing. I took arthroscopy pictures throughout the case saved them onto the system. I used also an accessory anterolateral and anteromedial arthroscopy portals for proper entry point of the meniscus repair devices. Case terminated tourniquet let down hemostasis achieved. Wounds cleaned with wet and dry dressing followed by closure of the portals with 3-0 Monocryl sutures. 10 cc of quarter percent bupivacaine instilled around the portal sites. Steri-Strips Adaptic 4 x 4 gauze ABD dressing and Erlin bandage with a hinged knee brace locked in full extension was then placed. Patient woken up from the general anesthetic transferred off the operating table and taken to postanesthetic care unit in stable condition. All sponge needle instrument counts were correct. Plan for the patient weightbearing in full extension with the knee brace and crutches. cpt 65678? Complications none Admit VTE Documentation VTE Present on Admission: No VTE Mechan Device Prophylaxis: SCD's VTE Pharm Prophylaxis ordered?: No Reason prophylaxis not ordered:: Treatment Not Indicated Procedures Musculoskeletal [id number]-29xxx: Other Procedure See Report
--- NOTE | 2023-10-12 08:44 | DCINST_ITS ---
Discharge Instructions Diet Discharge Diet: No restrictions Activity Discharge Activity: Use Crutches Ice area for (Minutes): 10 Keep extremity elevated above heart level: Operative Extremity Additional Activity Instructions:: WBAT in full extension (straight) with crutches and brace 6 weeks Dressing / Incision Call your doctor if your incision/area has: Continuous Slow Oozing, Sudden Increased Bleeding, Increased Pain/ Swelling, Increased Redness, Foul Smelling Discharge and Swelling at the incision site Remove Dressing in: leave in place till F/U Follow Up Care Please Follow Up With: Derrek Cheema MD When: 2 days Test Results: Test results from this visit will be discussed in further detail at your follow- up appointment, if applicable. Discharge Plan Admission Attending Provider: Derrek Cheema Primary Care Provider: Alex Wasserman Instructions Patient Instructions: After Knee Arthroscopy Discharge Orders/Prescriptions Prescriptions: New oxycodone-acetaminophen [Percocet] 5-325 mg tablet 1 tab PO Q4H MDD 6 PRN (Reason: pain) 5 Days Qty: 20 0RF No Action melatonin 10 mg capsule 10 mg PO QHS Referrals / Follow Up: Alex Wasserman MD [Primary Care Provider] - Derrek Cheema MD [Med Staff - Active Staff] - Disposition Disposition (needs filled in before D/C Order can be placed): Home, Self Care
[2023-10-12] MEDS: Oxycodone/Apap 5/325 Tablet PO (10:03)
== END 2023-10-12 10:29 | disposition home or self-care (01) ==
LOC: SDC 05:52 → AC 06:10
PROVIDERS: PCP Family Medicine; Referring Provider Family Medicine; Visit Provider Orthopaedic Surgery Sports Medicine
PROC: (CPT 29870; principal; 2023-10-12 07:10)
DX: S83.212A Bucket-handle tear of medial meniscus, current injury, left knee, initial encounter (principal); M23.8X2 Other internal derangements of left knee; Z87.891 Personal history of nicotine dependence; X58.XXXA Exposure to other specified factors, initial encounter
CPT/HCPCS: 29882; C1713; J7120; J2405

== ENCOUNTER 2024-01-05 12:00 | Outpatient (RCR) | payer OTHER, MEDICAID, SELFPAY ==
--- NOTE | 2023-10-17 14:57 | HP.PTEVAL_ITS ---
Patient's Visit Information Visit Information Visit Information: JENNIFER MADERA is a 23 year old M referred to Physical Therapy by Dr. Derrek Cheema MD with a diagnosis of Left Meniscal Repair 10/12/23. Date of Evaluation: 10/17/23 Physical Therapist: Bailey Bolden DPT Visit Plan Frequency: 2x /Week Duration: 6 Weeks Plan: Left Meniscal Repair 10/12/23- WBAT with brace locked in extension for 6 weeks, passive ROM for 0-90 with PT HEP Given IE: ROM Exercises: supine bolster extn and seated extension stretch, standing TKE, quad set, SLR with brace- crutch training WBAT single and double crutch Subjective Subjective: Torn meniscus playing basketball in September- had surgery Oct [address] Cheema. He saw him Tuesday- he said he was looking good- he did not given him any instructions other than see you in 2 weeks. He has walked on it with a walker and it felt okay. He is having some soreness after he moves around. Worst: 12/13 Agg: getting out of bed. Eases: ice. He is using ice 4-5x a day- polar pack machine. The pain is located along the medial knee. The pain does not radiate. The does not have any N/T. He describes the pain as sharp and more muscle spasm. Those have subsided and now its more dull and achy. Prior to the injury he was very active. He was fully I prior to the injury. Sleep: he has slept through the night the last few nights. He is taking Tylenol and Ibuprofen and the muscle relaxer as needed. 2 days ago was the last time he took an Oxy. He is not back to driving. 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 Goes back to [place] in approx 2 weeks. He is not doing any exercise at home. He takes the brace off when he is sititng for long periods of time. He is sleeping in the brace. He has help at home- Goals are to get back to normal. PMHx/Meds: no changes since he left the hospital. Objective Objective: Posture: forward head, rounded shoulder- can correct but does maintain Gait: axillary crutches- coming into clinic does not WB through LE. After crutch training step to gait pattern with both single and double crutch SLS: weight shift Observation: incisions healing well no s/s of infection- steri strips intact Girth: Patella: 48 cm 6 above:65 cm Palpation: tender along medial joint line ROM: -10 degrees from full extension to 50 degrees of flexion Strength: ankle: 5/5, Knee: Quad set: not visible, SLR: significant lag- hamstrin/5, Hip: abd: 4/5, Hip ad: 4+/5 Hip ext: 4/5, Core: fair Balance/Special Test Scores Lower Extremity Functional Score: 25 Goals Goal 1:: Patient will report participation in home exercise program activities a minimum of 5 days per week, as adjunct to skilled physical therapy intervention in preparation for independent home management upon discharge. Goal Time Frame: 8-12 Weeks Goal 2:: Patient will demo full AROM as allowed per MD recommendations (0-90 at IE) Goal Time Frame: 8-12 Weeks Goal 3:: Patient will demo SLR without lag Goal Time Frame: 8-12 Weeks Goal 4:: Patient will demo equal girth 6 above patella Goal Time Frame: 4-6 Weeks Goal 5:: Patient will ambulate >300 feet with a normalized gait pattern Goal Time Frame: 8-12 Weeks Goal 6:: Patient will report 80% improvement Goal Time Frame: 8-12 Weeks Rehabilitation Potential Physical Therapy Diagnosis: Patient presents s/p left meniscal repair. Patient has decreased ROM, LE and core strength/stabilization, flex and muscular endurance leading to abnormal gait pattern and decreased ability to perform ADL's. Rehabilitation Potential: Good Anticipated Interventions Patient/Client Instruction: Educate patient on: Benefits of Fitness Program Therapeutic Exercise to Include: Strength training, Endurance training, Balance training, Coordination, Agility training, Body mechanics, Postural training, Flexibilty training, Gait and locomotor training, Neuromotor development, Passive ROM, Active ROM and Dynamic Lumbar Stabilization For the Purpose of:: To improve muscle performance and motor function TENS: Yes Cryotherapy (ice pack, ice massage): Yes Thermo therapy (hot pack): Yes Text: Thank you for the opportunity to evaluate your patient. For Medicare and Medicare HMO plans, please review the plan of care and approve it. It will need to be FAXED BACK to us at [phone] for Medicare purposes. For Medicare only, by signing this I certify the plan of care. Please let me know if there are questions or concerns regarding this plan of care. Physician Signature: Date :
--- NOTE | 2023-12-01 13:03 | HP.PTREVAL ---
Re-Evaluation Intro: Dr. Derrek Cheema MD, It has been my pleasure to treat JENNIFER MADERA over the last 14 visits for Left Meniscal Repair 10/12/23. Please see the progress note below for an update on the physical therapy plan of care! Subjective Subjective: My pain is minimal today. Just sore from squatting yesterday Objective Objective/Function: L knee pain ranges from 1-2/10 L knee ROM: 0-5-120 degrees, R knee 0-5-130 degrees L knee MMT: flex= 19 (R=21), ext= 24 (R=41) #F Girth 6 above patella: L= 55, R= 58 cm Pt now ambulates with a normalized gait pattern, and is unlimited with distance at this time. Plan Plan Plan: Cont to progress L LE strengthening and stability ex's Balance/Gait/Functional tests Balance/Special Test Scores Lower Extremity Functional Score: 57 Goals Goals Goal 1:: Increase L quad strength to 90-95% of R quad strength to aid with return to functional sport Goal Time Frame: 8-12 Weeks Goal Progress: New goal Goal 2:: Patient will demo full AROM as allowed per MD recommendations (0-90 at IE) Goal Time Frame: 8-12 Weeks Goal Progress: Progressing Goal 3:: Pt will perform single leg hop test with L LE that will be 95% equal to R LE Goal Time Frame: 8-12 Weeks Goal Progress: New goal Goal 4:: Patient will demo equal girth 6 above patella Goal Time Frame: 4-6 Weeks Goal Progress: Progressing Goal 5:: Patient will ambulate >300 feet with a normalized gait pattern Goal Time Frame: 8-12 Weeks Goal Progress: Goal Met Goal 6:: Patient will report 80% improvement Goal Time Frame: 8-12 Weeks Goal Progress: Goal Met Anticipated Interventions Anticipated Interventions Patient/Client Instruction: Educate patient on: Benefits of Fitness Program Therapeutic Exercise to Include: Strength training, Endurance training, Balance training, Coordination, Agility training, Body mechanics, Postural training, Flexibilty training, Gait and locomotor training, Neuromotor development, Passive ROM, Active ROM and Dynamic Lumbar Stabilization For the Purpose of:: To improve muscle performance and motor function TENS: Yes Cryotherapy (ice pack, ice massage): Yes Thermo therapy (hot pack): Yes Re-Evaluation Ending Re-evaluation ending: Please do not hesitate to contact me at [phone] by phone or if you have questions or concerns regarding this new plan of care! Sincerely, Min Chambers, PT, ATC
--- NOTE | 2024-04-10 14:48 | HP.PT.NRP ---
Patient Information Patient Information: JENNIFER KEYONNA MADERA was seen in my office for initial evaluation on 10/17/23. The following Plan of Care was established for this patient: POC Established Initial Frequency: 2x /Week Initial Duration: 6 Weeks Anticipated Interventions Patient/Client Instruction: Educate patient on: Benefits of Fitness Program Therapeutic Exercise to Include: Strength training, Endurance training, Balance training, Coordination, Agility training, Body mechanics, Postural training, Flexibilty training, Gait and locomotor training, Neuromotor development, Passive ROM, Active ROM and Dynamic Lumbar Stabilization For the Purpose of:: To improve muscle performance and motor function TENS: Yes Cryotherapy (ice pack, ice massage): Yes Thermo therapy (hot pack): Yes Last Seen Last Seen: This patient was last seen in our office . Pertinent comments regarding their Physical therapy will appear below: Pt was treated for 22 PT visits for L knee pain through the date of 01/05/24. Pt has not returned through todays date and is discontinued at this time. At this point I will be discontinuing this patient from physical therapy. I would be happy to see this patient again in the future if found appropriate by the physician. Thank you! Min Chambers, PT, ATC Balance/Gait/Functional tests Balance/Special Test Scores Lower Extremity Functional Score: 76
== END 2024-01-05 19:00 | disposition home or self-care (01) ==
LOC: PT 12:00
PROVIDERS: PCP Family Medicine; Referring Provider Orthopaedic Surgery Sports Medicine; Visit Provider Orthopaedic Surgery Sports Medicine
DX: S83.201D Bucket-handle tear of unspecified meniscus, current injury, left knee, subsequent encounter (principal)
CPT/HCPCS: 97014; 97110; 97162; 97530; G0283

== ENCOUNTER 2024-02-14 07:30 | Emergency (ER) | payer MEDICAID, SELFPAY ==
[2024-02-14 07:31] VITALS: BP 152/103; PULSE 109; RESP 18; TEMP 36.4; O2SAT 100; BMI 36.0
--- NOTE | 2024-02-14 07:34 | EX.ED.GENINJ ---
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 MCL sprain of left knee Bucket handle tear of meniscus of left knee Home Medications ?Medication ?Instructions ?Recorded ?Last Taken ?Type melatonin 10 mg capsule 10 mg PO QHS 10/10/23 10/11/23 History amoxicillin 875 mg-potassium 1 tab PO BID 7 days #14 tabs 02/12/24 Unknown Rx clavulanate 125 mg tablet azithromycin 500 mg tablet 500 mg PO DAILY 5 days #5 tabs 02/14/24 Unknown Rx (Zithromax) Allergy/AdvReac Type Severity Reaction Status Date / Time cat dander Allergy Unknown Verified 02/14/24 07:31 hydrocodone bitartrate (From AdvReac Other Verified 02/14/24 07:31 Vicodin) Family History Father Hypertension Other Heart disease Surgical History Hx of left knee surgery Social History Smoking Status: Former smoker alcohol intake: never substance use type: does not use EXAM Physical Exam Const Vital Signs: 02/14/24 07:31 Temperature 97.5 F L Temperature Source Temporal Pulse Rate 109 H Respiratory Rate 18 Blood Pressure 152/103 H Blood Pressure Mean 119 Pulse Ox 100 Oxygen Delivery Method Room Air MDM MDM MDM Narrative Medical decision making narrative: HISTORY OF PRESENT ILLNESS: 23-year-old male presents with sore throat nausea and vomiting.Notes sore throat and cough last 3 days. Notes he went to see his physician on Tuesday and got a prescription for amoxicillin and since then has had worsening nausea vomiting. Notes 4 episodes this morning nonbloody nonbilious. Denies any chest pain or shortness of breath denies any neck stiffness but notes sore throat. 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 Denies fever. REVIEW OF SYSTEMS: Pertinent positives: Sore throat, nausea vomiting Pertinent negatives: Hematemesis, abdominal pain, chest pain, shortness of breath] PHYSICAL EXAM: Nursing triage notes reviewed, Vital signs reviewed Constitutional: please see mdm HENT: MMM, no submandibular edema, slight erythema noted to posterior oropharynx with no exudates, no drooling, no pooling secretions, no trismus Eyes: Pupils equal round and reactive to light, Extraocular muscles intact Neck: No stridor, no JVD, full neck ROM Lungs: Clear to auscultation, No wheezing or rales. No increased work of breathing, no conversational dyspnea, no accessory muscle use, no nasal flaring. No respiratory distress noted Heart: Regular rate and rhythm, No murmurs, No rubs and No gallops, 2+ distal pulses (radial, femoral, posterior tibial) in all extremities Abdomen: Soft, there is no tenderness, rigidity, rebound or guarding, no obvious peritoneal signs, no palpable pulsatile abdominal masses, no auscultated abdominal bruit : No CVAT Extremities: No edema Neuro: No focal neurological deficits, cranial nerves II through XII intact, 5/5 strength in all extremities. Intact sensation to light touch in all extremities, 2+ reflexes bilateral patella tendons. Normal gait. No ataxia. Skin: No rash or lesions noted MEDICAL DECISION MAKING: Chief Complaint: Sore throat External records reviewed: No recent advanced imaging of the neck Factors affecting care: none Social determinants of health: none History obtained from others: none Consults: none [facility] Narrative: Patient was hemodynamically stable, afebrile and nontoxic-appearing. Exam with mild erythema noted to posterior pharynx but no tonsillar edema, exudates, uvula midline, no stridor. No signs of drooling or airway compromise. No indication for advanced airway at this time. I considered the following differential diagnosis: Viral versus bacterial pharyngitis, RPA, PURCHASING AGENT, Erich's angina ALL IMAGES (IF OBTAINED) HAVE BEEN PERSONALLY REVIEWED AND INTERPRETED BY MYSELF. CBC with leukocytosis suggestive of systemic inflammation, no anemia or thrombocytopenia BMP without evidence of significant electrolyte abnormalities, no anion gap, no acute kidney injury. Treat the patient medically initially with p.o. Zofran although he cannot tolerate this. IV was in place and he was given Toradol, Decadron, IV Zofran and fluids. Noted symptomatic relief. P.o. challenge with azithromycin was obtained Patient is able to tolerate p.o. I suspect the patient symptoms are secondary to adverse reaction to antibiotic and for amoxicillin. Give Zofran and change antibiotic to azithromycin. There is no signs of airway compromise. Patient is appropriate for discharge home The patient and/or family, caregivers express understanding. The patient and/or family, caregivers agrees with the plan. Shared decision making: I will have a discussion with the patient and or visitors regarding risk/benefits of further testing or admission. They will be made aware of of the risk/benefits inherent in this decision they will be given the opportunity to voice understanding. Total critical care time today provided was at least 0 minutes. This excludes separately billable procedures. Critical care time (if documented) is secondary to the patient having high probability of clinically significant/life threatening deterioration in the patient's condition which required my urgent intervention. Impression: 1. Acute pharyngitis 2. Nausea vomiting Dispo: Discharge home This note was generated with travayl dictation software. It may contain incorrect words, spelling, and punctuation that were not noted in review of the chart prior to signing. Lab Data Labs: Laboratory Results - last 24 hr 02/14/24 02/14/24 02/14/24 08:41 08:41 08:55 WBC Cancelled 13.1 H Corrected WBC Cancelled RBC Cancelled 5.04 Hgb Cancelled 13.9 Hct Cancelled 42.3 MCV Cancelled 83.9 MCH Cancelled 27.6 MCHC Cancelled 32.9 RDW Std Deviation Cancelled 41.7 RDW Coeff of Dia Cancelled 13.6 Plt Count Cancelled 210 MPV Cancelled 11.0 Immature Gran % (Auto) Cancelled 0.200 Neut % (Auto) Cancelled 77.2 H Lymph % (Auto) Cancelled 11.9 L [place] % (Auto) Cancelled 9.7 Eos % (Auto) Cancelled 0.5 Baso % (Auto) Cancelled 0.5 Absolute Neuts (auto) Cancelled 10.1 H Absolute Lymphs (auto) Cancelled 1.56 Total Counted Cancelled Neutrophils % (Manual) Cancelled Band Neutrophils % Cancelled Lymphocytes % (Manual) Cancelled Monocytes % (Manual) Cancelled Eosinophils % (Manual) Cancelled Basophils % (Manual) Cancelled Metamyelocytes % Cancelled Myelocytes % Cancelled Promyelocytes % Cancelled Blast Cells % Cancelled Plasma Cell % (Manual) Cancelled Other Cells % Cancelled Nucleated RBC % Cancelled 0 Nucleated RBCs/100 WBC Cancelled Differential Comment Cancelled Diff Path Review Cancelled Hypersegmented Neuts Cancelled Atypical Lymphocytes Cancelled Reactive Lymphocytes Cancelled Smudge Cells Cancelled Toxic Granulation Cancelled Toxic Vacuolation Cancelled Dohle Bodies Cancelled Tara Rods Cancelled Platelet Estimate Cancelled Plt Morphology Comment Cancelled RBC Morphology Cancelled Cancelled Polychromasia Cancelled Hypochromasia Cancelled Basophilic Stippling Cancelled Anisocytosis Cancelled Microcytosis Cancelled Macrocytosis Cancelled Spherocytes Cancelled Sickle Cells Cancelled Target Cells Cancelled Tear Drop Cells Cancelled Ovalocytes Cancelled Stomatocytes Cancelled [place] Bodies Cancelled Hermann Cells Cancelled Bite Cells Cancelled Crenated Cell Cancelled Acanthocytes (Spur) Cancelled Rouleaux Cancelled Schistocytes Cancelled Sodium 138 Potassium 4.5 Chloride 109 H Carbon Dioxide 26.0 Anion Gap 3 L BUN 17 Creatinine 0.85 Estim Creat Clear Calc 181.17 Est GFR (MDRD) Af Amer 143 Est GFR (MDRD) Non-Af 118 BUN/Creatinine Ratio 20.0 Glucose 100 Calcium 9.3 Discharge Plan Triage Chief Complaint: Sore Throat Other Complaint: Nausea/Vomiting ED Provider: Roberth Gleason Dx/Rx/DC Orders Instructions: Pharyngitis or Tonsillitis Ch, ED Vomiting (Adult) Prescriptions: New azithromycin [Zithromax] 500 mg tablet 500 mg PO DAILY 5 Days Qty: 5 0RF No Action amoxicillin-pot clavulanate 875-125 mg tablet 1 tab PO BID 7 Days Qty: 14 0RF melatonin 10 mg capsule 10 mg PO QHS Primary Care Provider: Alex Wasserman Referrals: Alex Wasserman MD [Primary Care Provider] - Activity Restrictions/Additional Instructions: Thank you for trusting us with your care today! Please take Tylenol (2 pills, 650 mg), ibuprofen (2 pills, 400 mg) every 6 hours as needed for pain and fever control. Please take antibiotics until course complete. Please return to the emergency department if your symptoms change or worsen. Specifically develop intractable nausea vomiting. Develop neck stiffness, develop severe difficulty swallowing, drooling or loud upper airway sounds (stridor) Please follow with your primary care physician for further outpatient evaluation and management. Print Language: Taiwanese Disposition Disposition: Home, Self Care
[2024-02-14] MEDS: Ondansetron ODT 4 MG Tablet PO (07:48)
[2024-02-14] MEDS: dexAMETHasone 10 MG/ML Vial 6 MG IM (08:07)
[2024-02-14] MEDS: Ketorolac 15 MG/ML Vial IM (08:07)
[2024-02-14] MEDS: Lidocaine 2% Viscous15 ML UDC 15 ML PO (08:49)
[2024-02-14] MEDS: Famotidine 200 MG/20 ML MDV 20 MG in 0.9% Normal Saline (Pres. free 8 ML 300 MG IV (08:50)
[2024-02-14] MEDS: Ondansetron 4 MG/2 ML Vial IV (08:50)
[2024-02-14] MEDS: 0.9% Normal Saline (1000mL) 1,000 ML 999 ML IV (08:50)
[2024-02-14 09:00] LABS: Anion Gap 3 (5-15); BUN 17 mg/dL (7-18); Calcium,Total 9.3 mg/dL (8.5-10.1); Chloride 109 mmol/L (98-107); Creatinine, Serum 0.85 mg/dL (0.70-1.30); EST Glomerular Filtration Rate 118 mL/min (>60); Est Glom Filt Rate - Afr Amer 143 mL/min (>60); Estimated Creatinine Clearance 181.17 ml/min; Glucose 100 mg/dL (74-106); Potassium 4.5 mmol/L (3.5-5.1); Sodium Level 138 mmol/L (136-145)
[2024-02-14 09:09] LABS: Absolute Lymphocyte Count 1.56 X10^3/uL (0.83-4.51); Absolute Neutrophil Count 10.1 X10^3/uL (2.0-7.7); Basophil# 0.06 X10^3/uL; Basophil% 0.5 % (0-1); Eosinophil# 0.07 X10^3/uL; Eosinophils% 0.5 % (0-5); Hematocrit 42.3 % (40-54); Hemoglobin 13.9 g/dL (13.0-16.5); Lymphocyte # 1.56 X10^3/ul (0.83-4.51); Lymphocyte % 11.9 % (19-41); Mean Corp Hgb Conc 32.9 g/dL (32-36); Mean Corpuscular Hgb 27.6 pg (27.0-32.0); Mean Corpuscular Volume 83.9 fL (80-94); Monocyte# 1.27 X10^3/uL; Monocyte% 9.7 % (0-10); NRBC Flagged by Analyzer 0 % (0-5); Neutrophil # 10.07 X10^3/uL (2.7-7.7); Neutrophil % 77.2 % (47-70); Platelet Count 210 K/mm3 (150-450); RBC Distribution Width CV 13.6 % (11.6-14.6); RBC Distribution Width SD 41.7 fl (35.1-43.9); Red Blood Count 5.04 M/mm3 (4.6-6.2); White Blood Count 13.1 K/mm3 (4.4-11.0)
[2024-02-14] MEDS: Azithromycin 250 MG Tablet 500 MG PO (10:16)
[2024-02-14 10:17] VITALS: BP 152/98; PULSE 88; RESP 18; TEMP 36.6; O2SAT 98
== END 2024-02-14 10:20 | disposition home or self-care (01) ==
PROVIDERS: Emergency Provider Emergency Medicine; PCP Family Medicine; Visit Provider Emergency Medicine
DX: J02.9 Acute pharyngitis, unspecified (principal); R11.2 Nausea with vomiting, unspecified; Z87.891 Personal history of nicotine dependence
CPT/HCPCS: 80048; 85025; 96372; 96374; 99284; A4216; J2405; J3490